=== PATIENT | male | born 1940 | race Caucasian/White ===

== ENCOUNTER 2018-10-28 12:08 | Inpatient (IN) | payer MEDICARE, SELFPAY ==
[2018-10-28] VITALS (14 sets, daily range): BP systolic 112–148; BP diastolic 45–79; PULSE 80–118; RESP 12–28; TEMP 36.8–38.2; O2SAT 94–99; BMI 22.6; BMI 22.7; BMI 24.7
[2018-10-28 12:40] LABS: Bedside Glucose 141 mg/dL (70-110)
--- NOTE | 2018-10-28 12:40 | RAD_ITS ---
STUDY: X-RAY CHEST REASON FOR EXAM: Male, 78 years old. Weakness. Fever. TECHNIQUE: Single AP portable view of the chest. COMPARISON: None. FINDINGS: EKG electrodes are seen. There is elevation of the right hemidiaphragm. Scattered calcified granulomas. No acute abnormality is seen. There is no demonstrated pleural abnormality. Normal size heart. Normal mediastinum and dayanara. Normal visualized pulmonary arteries. There is atherosclerotic tortuosity of the aortic arch and descending thoracic aorta. There are degenerative changes of the visualized thoracic spine. Normal visualized ribs, clavicles, and shoulders. There is no demonstrated abnormality of the visualized soft tissue structures of the upper abdomen. RAD/Chest 1 View (Portable) IMPRESSION: No acute abnormality is seen. Electronically Signed: Vinicius Claytno MD at 13:07 EST Tel [phone], Service support ,
--- NOTE | 2018-10-28 12:40 | EKG12_ITS ---
Test Reason : TACHY Blood Pressure : / mmHG Vent. Rate : 116 BPM Atrial Rate : 116 BPM P-R Int : 130 ms QRS Dur : 074 ms QT Int : 316 ms P-R-T Axes : 051 027 056 degrees QTc Int : 439 ms Sinus tachycardia Otherwise normal ECG Confirmed by SUMAN CARRINGTON, ROLANDO ([id number]), food editor MARIA L SCHULER ([id number]) on 11/01/2018 9:21:45 AM Referred By: SARAI/DIEGO Confirmed By:ROLANDO WILL MD
[2018-10-28] MEDS: 0.9% Normal Saline 1,000 ML 1000 ML IV (13:27)
[2018-10-28] MEDS: Ceftriaxone 1 GM/50 ML BAG IV (13:27)
[2018-10-28 13:45] LABS: Absolute Neutrophil Count 10.3 X10^3/uL (2.0-7.7); Basophil# 0.03 X10^3/uL; Basophil% 0.3 % (0-1); Eosinophil# 0.01 X10^3/uL; Eosinophils% 0.1 % (0-5); Hematocrit 34.1 % (40-54); Hemoglobin 10.7 g/dl (13.0-16.5); Lymphocyte % 4.3 % (19-41); Mean Corp Hgb Conc 31.4 g/gl (32-36); Mean Corpuscular Hgb 28.5 pg (27.0-32.0); Mean Corpuscular Volume 90.7 fL (80-94); Mean Platelet Vol. 10.7 fl (6.2-12.0); Monocyte# 0.64 X10^3/uL; Monocyte% 5.6 % (0-10); Neutrophil % 89.3 % (47-70); Platelet Count 309 K/mm3 (150-450); RBC Distribution Width CV 15.4 % (11.6-14.6); RBC Distribution Width SD 51.1 fl (35.1-43.9); Red Blood Count 3.76 M/mm3 (4.6-6.2); White Blood Count 11.5 K/mm3 (4.4-11.0)
[2018-10-28 13:46] LABS: POSITIVE COUNT NO; POSITIVE DIFFERENTIAL YES; POSITIVE MORPHOLOGY NO
[2018-10-28 13:47] LABS: Differential Indicated SCAN CRITERIA MET
[2018-10-28 13:54] LABS: ALB/GLOB Ratio 0.4 RATIO (0.9-2.4); AST(SGOT) 67 U/L (15-37); Alanine Aminotransfer ALT/SGPT 72 U/L (16-61); Albumin, Serum 2.3 g/dL (3.2-5.0); Alkaline Phosphatase 90 U/L (45-117); Anion Gap 8 (5-15); BUN 29 mg/dL (7-18); Calcium,Total 9.1 mg/dL (8.5-10.1); Chloride 106 mmol/L (98-107); Creatinine, Serum 1.21 mg/dL (0.70-1.30); EST Glomerular Filtration Rate 62 mL/min (>60); Est Glom Filt Rate - Afr Amer 75 mL/min (>60); Estimated Creatinine Clearance 49.58 ml/min; Globulin 5.2 g/dL (2.2-4.2); Glucose 155 mg/dL (74-106); Potassium 3.8 mmol/L (3.5-5.1); Protein, Total 7.5 g/dL (6.4-8.2); Sodium Level 142 mmol/L (136-145)
--- NOTE | 2018-10-28 13:58 | ED.RN ---
LAB CALLED WITH [facility]ACT[facility] OF 2.2, DR. CORTEZ INFORMED AND PRIMARY NURSE MALAIKA LE RN.
[2018-10-28 13:59] LABS: Lactic Acid 2.2 mmol/L (0.4-2.0)
[2018-10-28 14:06] LABS: Mucous, Urine 0 SEEN /hpf (<or=2+); Squamous Epithelial Cells - UA 0 SEEN /hpf (0-5)
[2018-10-28 14:09] LABS: Color, Urine Yellow (Yellow); Glucose, Dipstick Normal (Normal); Ketone-Dipstick Negative (Negative); Leukocyte Esterase-Dipstick 500 /ul (Negative); Nitrite-Dipstick Negative (Negative); Occult Blood-Urine 250 /ul (Negative); Protein-Dipstick 100 mg/dl (Negative); Specific Gravity, Urine 1.015 (1.002-1.030); Urine Bilirubin Dipstick Negative (Negative); Urine Clarity Cloudy (Clear); Urine Urobilinogen 4 mg/dl (Normal)
[2018-10-28 14:17] LABS: Bacteria 3+ /hpf (None Seen); Red Blood Cells-Urine 50-100 SEEN /hpf (0-5); White Blood Cells 50-100 SEEN /hpf (0-5)
--- NOTE | 2018-10-28 14:27 | ED.VISSUMM ---
- ER Visit Summary Date of Service: 10/28/18 Chief Complaint: [Fever, confusion] History of Present Illness: The patient is a 78 M [presents to the emergency department with fever that started today. At long-term patient with temperature up to 104. Patient had decreased responsiveness per long-term staff as well as his who is now with him here. Patient does have an indwelling Santos catheter. Patient has a history of dementia and typically does not give much history. Patient with history of chronic decubitus ulcer.] Physical Examination: [HEENT-PERRLA, EOMI. Cranial nerves II through XII grossly intact. TMs clear. Mucous membranes moist. No adenopathy. Cardiovascular-regular rate and rhythm without murmur or ectopy Lungs-clear to auscultation, chest wall stable without crepitus or subcu emphysema Abdomen-normoactive bowel sounds, soft, nontender, no rebound or rigidity, no peritoneal signs. Sacrum-patient has a large sacral decubitus ulcer and on evaluation patient had had a bowel movement and there is stool around the decubitus ulcer and when the dressing was taken down it was noted that the ulcer is packed but also has stool within it. There is surrounding erythema. There is warmth. Extremities-intact ?4, normal range of motion, normal pulses, atraumatic] Test Results: [EKG obtained showed a sinus rhythm with a ventricular rate of 116 bpm. CBC with differential showed a white count of 11.5, hemoglobin 10.7, hematocrit 34, placed 309. Chemistries unremarkable. BUN was 29 and creatinine 1.21. Lactate was elevated 2.2. LFTs slightly elevated. Troponin is less than 0.015. Urinalysis showed 50-100 WBCs and 50-100 RBCs. Patient had +3 bacteria.] Emergency Department Course and Treatment: [Urine culture sent. Blood culture sent. Patient was started empirically on presentation on Rocephin 1 g IV. Patient was given Tylenol 1 g rectally.] A liter normal same fluid bolus was ordered. Treatment Plan: [Admit] Disposition: [Admit] Impression: [Sepsis UTI Sacral decubitus chronic-infected] This note was generated with Bilibotation software. It may contain incorrect words, spelling, and punctuation that were not noted in review of the chart prior to signing ED Disposition - Plan for ED Patient: Chief Complaint: General Illness Referrals: Edy Che MD [Primary Care Provider] -
--- NOTE | 2018-10-28 14:30 | ED.DCSUM_ITS ---
- ER Visit Summary Date of Service: 10/28/18 Chief Complaint: [Fever, confusion] History of Present Illness: The patient is a 78 M [presents to the emergency department with fever that started today. At [facility] patient with temperature up to 104. Patient had decreased responsiveness per [facility] staff as well as his who is now with him here. Patient does have an indwelling Santos catheter. Patient has a history of dementia and typically does not give much history. Patient with history of chronic decubitus ulcer.] Physical Examination: [HEENT-PERRLA, EOMI. Cranial nerves II through XII grossly intact. TMs clear. Mucous membranes moist. No adenopathy. Cardiovascular-regular rate and rhythm without murmur or ectopy Lungs-clear to auscultation, chest wall stable without crepitus or subcu emphysema Abdomen-normoactive bowel sounds, soft, nontender, no rebound or rigidity, no peritoneal signs. Sacrum-patient has a large sacral decubitus ulcer and on evaluation patient had had a bowel movement and there is stool around the decubitus ulcer and when the dressing was taken down it was noted that the ulcer is packed but also has stool within it. There is surrounding erythema. There is warmth. Extremities-intact ?4, normal range of motion, normal pulses, atraumatic] Test Results: [EKG obtained showed a sinus rhythm with a ventricular rate of 116 bpm. CBC with differential showed a white count of 11.5, hemoglobin 10.7, caren tocrit 34, placed 309. Chemistries unremarkable. BUN was 29 and creatinine 1.21. Lactate was elevated 2.2. LFTs slightly elevated. Troponin is less than 0.015. Urinalysis showed 50-100 WBCs and 50-100 RBCs. Patient had +3 bacteria.] Emergency Department Course and Treatment: [Urine culture sent. Blood culture sent. Patient was started empirically on presentation on Rocephin 1 g IV. Patient was given Tylenol 1 g rectally.] A liter normal same fluid bolus was ordered. Treatment Plan: [Admit] Disposition: [Admit] Impression: [Sepsis UTI Sacral decubitus chronic-infected] This note was generated with [employer]Shift [employer]ation software. It may contain incorrect words, spelling, and punctuation that were not noted in review of the chart prior to signing ED Disposition - Plan for ED Patient: Chief Complaint: General Illness Referrals: Edy Che MD [Primary Care Provider] -
[2018-10-28] MEDS: Vancomycin IV 1,000 MG/200 ML BAG 200 MG IV (15:14)
--- NOTE | 2018-10-28 15:19 | CM.ED ---
Social Work Note Jenaro from [facility] approached SW regarding discharge planning. Reports that pt is from SNF and family is wanting for him to return to ECF with hospice. Will update SW on assigned unit. Pt is from [facility]. Placed call to FE Gardner, and updated. PLAN: ECF with [facility]. HAILEY Oh, ALEX
--- NOTE | 2018-10-28 15:56 | PCM.HP.STD ---
Problem List (1) Sepsis Status: Acute (2) Pyelonephritis Status: Acute (3) Osteoarthritis Status: Chronic (4) Dementia with behavioral disturbance Status: Chronic (5) HTN (hypertension) Status: Chronic (6) Type 2 diabetes mellitus Status: Chronic (7) Urine retention Status: Suspected (8) Chronic renal failure Status: Suspected (9) Normochromic normocytic anemia Status: Acute (10) Dysphagia Status: Chronic (11) Sacral decubitus ulcer Status: Chronic History of Present Illness Date of Admission: 10/28/18 Chief Complaint: change in mental status, generalized weakness The patient is a 78 year old M with a PMH of dementia with behavioral disturbances, diabetes mellitus type 2, hypertension, hypothyroidism, osteoarthritis, chronic non-healing sacral decubitus ulcer and 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 He is not able to converse with me at the time of my exam and hx was obtained from his . He is currently receiving palliative care at the [facility] and his has been considering hospice but, she has not been able to make that decision yet and she wants him treated for infection but he will be DNRCCA. Vital signs of presentation to the emergency room were temp 98.4, pulse rate 118, blood pressure 118/69, respiratory rate 21 and he was 94% saturated on room air. White blood cell count is elevated at 11.5 with left shift. His hemoglobin is 10.7 with normochromic normocytic indices. Platelets are within normal limits. Electrolytes are within normal limits. BUN is 29 with a creatinine of 1.21 and an estimated creatinine clearance of 49.58. We have no baseline labs on this gentleman. Random blood sugar was 155 and hemoglobin A1c was elevated at 8.9. The initial lactic acid was 2.2 but the second check following hydration was 1.0. Transaminases are mildly elevated with an AST of 67 and an ALT of 72. Alk phos and bili are within normal limits. The troponin was less than 0.015. The urine showed 50-100 WBCs per high-power field with 3+ bacteria. Blood cultures x2 and a urine culture were sent from the emergency department. The chest x-ray showed no infiltrates, pulmonary vascular congestion or pleural effusions. He is being admitted to the hospital with complicated UTI/pyelonephritis and severe sepsis with altered mental status. Past Medical History Past Medical History (Chronic Problems): Chronic Problems Osteoarthritis (Chronic) Dementia with behavioral disturbance (Chronic) HTN (hypertension) (Chronic) Type 2 diabetes mellitus (Chronic) Dysphagia (Chronic) Sacral decubitus ulcer (Chronic) Allergies ciprofloxacin [From Cipro] Allergy (Verified 10/28/18 12:10) Unknown Penicillins [PCN] Allergy (Verified 10/28/18 12:10) Unknown Home Medications: Ambulatory Orders Medication Instructions Recorded Acetaminophen 650 mg PO 4X/DAY PRN 10/28/18 Acetaminophen 650 mg RC Q4H PRN 10/28/18 Amlodipine [Norvasc] 5 mg PO DAILY 10/28/18 Ascorbic Acid [Vitamin C] 500 mg PO DAILY@0800 10/28/18 Aspirin E.C. [Ecotrin] 81 mg PO DAILY@0800 10/28/18 Atorvastatin Calcium [Lipitor] 10 mg PO QHS 10/28/18 Bisacodyl 10 mg RC PRN PRN 10/28/18 Collagenase [Santyl] 1 applic TOPICAL DAILY 10/28/18 Cyanocobalamin [Vitamin B12] 500 mcg PO DAILY@0800 10/28/18 Divalproex Sprinkles [Depakote 500 mg NG QHS 10/28/18 Sprinkles] Docusate Sodium 100 mg PO BID 10/28/18 Donepezil HCl [Aricept] 10 mg PO QHS 10/28/18 Doxycycline Monohydrate 100 mg PO Q12H 10/28/18 Guaifenesin [Robitussin] 10 ml PO Q4H PRN PRN 10/28/18 Insulin Glargine,Hum.rec.anlog 30 unit SC QHS 10/28/18 [Lantus] Insulin Lispro [Humalog] 10 unit SC BREAKFAST 10/28/18 Levothyroxine [Synthroid] 100 mcg PO DAILY 10/28/18 Mag Hydrox/Al Hydrox/Simeth 30 ml PO Q4H PRN PRN 10/28/18 [Mylanta II] Magnesium Hydroxide [Milk Of 30 ml PO DAILY PRN PRN 10/28/18 Magnesia] Multivit,Stress Formula/Zinc 1 each PO BID 10/28/18 [Stress Formula with Zinc Tab] Multivit,Tx with Iron,Minerals 1 tab PO DAILY 10/28/18 [Thera-M] Polyethylene Glycol 3350 [Miralax] 17 gm PO DAILY 10/28/18 Prostat Awc 30 ml PO BID 10/28/18 Risperidone [Risperdal] 1 mg PO DAILY 10/28/18 Sennosides [Senna Lax] 8.6 mg PO BID 10/28/18 traMADol [Ultram (G)] 50 mg PO DAILY PRN 10/28/18 traZODone [Desyrel] 50 mg PO QHS 10/28/18 Surgical History: no surgical history Psychiatric History: No pertinent psych hx Lives: [facility] Smoking Status: Former smoker - he used to smoke a pipe when he was younger Tobacco Use: Non-smoker, Pipe Alcohol: None Drugs: None - *Family History Maternal History Items: No pertinent history Paternal History Items: No pertinent history Review of Systems Neurological: Reports: - - increased confusion and not as responsive as usual. Unable to obtain accurate/complete ROS d/t: pt is non-verbal at the present time VTE Information - Inpt Only VTE Present on Admission: No VTE Mechan Device Prophylaxis: SCD's, Knee High BENY Hose VTE Pharm Prophylaxis ordered?: Yes Patient Problems: Active and Suspected Problems Sepsis (Acute) Pyelonephritis (Acute) Urine retention (Suspected) Chronic renal failure (Suspected) Normochromic normocytic anemia (Acute) - Physical Exam General: Lethargic, Non-Cooperative, - - Nonverbal, will open his eyes occasionally but not on command HEENT: Atraumatic, PERRLA, Normocephalic Oral: Dry Mucosa Neck: Supple, No JVD, No Nodes, Trachea Midline Lungs: Clear to auscultation, No rhonchi, No wheeze, No rales, Diminished Cardiovascular: Regular Rhythm, Normal S1, Normal S2, No rub noted, No Gallop, Tachycardic Abdomen: Bowel Sounds Present, Soft, Non-Distended, - - No guarding with palpation and no masses Extremities: No clubbing, No cyanosis, No edema, Peripheral Pulses Normal Skin: No rashes, - - He has a sacral decubitus ulcer....will examine when he has been cleaned up and the wound can be properly evaluated......there is stool in the wound Musculoskeletal: Muscle Wasting Neurological: - - can not evaluate......no facial asymmetry. He is not moving and will not follow commands Vital Signs Temp Pulse Resp BP Pulse Ox 99.2 F H 110 H 19 H 112/67 94 10/28/18 15:48 10/28/18 15:48 10/28/18 15:48 10/28/18 15:48 10/28/18 15:48 Oxygen Flow Rate (L/min) 2 Oxygen Delivery Method Room Air Weight: 153 lb 3.54 oz Body Mass Index (BMI) 24.7 Finger Stick Blood Glucose 141 Laboratory Tests Past 24 Hrs 10/28/18 10/28/18 10/28/18 12:20 12:20 12:20 WBC 11.5 H RBC 3.76 L Hgb 10.7 L Hct 34.1 L MCV 90.7 MCH 28.5 MCHC 31.4 L RDW 15.4 H RDW Differential 51.1 H Plt Count 309 MPV 10.7 Immature Gran % (Auto) 0.400 Neut % (Auto) 89.3 H Lymph % (Auto) 4.[address] [place] % (Auto) 5.6 Eos % (Auto) 0.1 Baso % (Auto) 0.3 Absolute Neuts (auto) 10.3 H Absolute Lymphs (auto) 0.50 L Total Counted Not Reportable Differential Comment COMMENT Sodium 142 Potassium 3.8 Chloride 106 Carbon Dioxide 28.0 Anion Gap 8 BUN 29 H Creatinine 1.21 Estim Creat Clear Calc 49.58 Est GFR (MDRD) Af Amer 75 Est GFR (MDRD) Non-Af 62 BUN/Creatinine Ratio 24.0 H Glucose 155 H Lactic Acid 2.2 H Calcium 9.1 Total Bilirubin 0.50 AST 67 H ALT 72 H Alkaline Phosphatase 90 Troponin I < 0.015 Total Protein 7.5 Albumin 2.3 L Globulin 5.2 H Albumin/Globulin Ratio 0.4 L Urine Color Urine Clarity Urine pH Ur Specific [place] Urine Protein Urine Glucose (UA) Urine Ketones Urine Occult Blood Urine Nitrite Urine Bilirubin Urine Urobilinogen Ur Leukocyte Esterase Urine RBC Urine WBC Ur Squamous Epith Cells Urine Bacteria Urine Mucus 10/28/18 14:00 WBC RBC Hgb Hct MCV MCH MCHC RDW RDW Differential Plt Count MPV Immature Gran % (Auto) Neut % (Auto) Lymph % (Auto) [place] % (Auto) Eos % (Auto) Baso % (Auto) Absolute Neuts (auto) Absolute Lymphs (auto) Total Counted Differential Comment Sodium Potassium Chloride Carbon Dioxide Anion Gap BUN Creatinine Estim Creat Clear Calc Est GFR (MDRD) Af Amer Est GFR (MDRD) Non-Af BUN/Creatinine Ratio Glucose Lactic Acid Calcium Total Bilirubin AST ALT Alkaline Phosphatase Troponin I Total Protein Albumin Globulin Albumin/Globulin Ratio Urine Color Yellow Urine Clarity Cloudy Urine pH 5.0 Ur Specific [place] 1.015 Urine Protein 100 H Urine Glucose (UA) Normal Urine Ketones Negative Urine Occult Blood 250 H Urine Nitrite Negative Urine Bilirubin Negative Urine Urobilinogen 4 H Ur Leukocyte Esterase 500 H Urine RBC 50-100 SEEN Urine WBC 50-100 SEEN Ur Squamous Epith Cells 0 SEEN Urine Bacteria 3+ Urine Mucus 0 SEEN POC Glucose 10/28/18 12:32 POC Glucose 141 H Assessment/Plan All Active Problems Sepsis (Acute) Pyelonephritis (Acute) Normochromic normocytic anemia (Acute) Impressions 1. severe sepsis due to complicated UTI/Pyelonephritis in a pt with a chronic indwelling zuñiga. 2. delirium on chronic dementia with behavioral disturbances 3. Hypothyroidism 4. Hypertension 5. Diabetes mellitus type 2 6. Osteoarthritis 7. Suspected chronic renal failure-we have no baseline 8. Dry mucous membranes with elevated BUN/creatinine ratio-suspect dehydration 9. Lactic acidosis Urine and blood cultures X 2 Change the zuñiga catheter Hydrate Bladder scan for urine residual Recheck the lab in the AM Start cefepime which should cover urinary tract infection and infection in the sacral decubitus ulcer with stool present Hold all oral medications until he is seen by ST Check TSH and a T4 Haldol IV for agitation Wound care consult - wet to dry dressing for now culture the sacral wound PT and OT evaluations when appropriate CODE STATUS: Discussed code status at length with Mrs. Fountain including the difference between FULL CODE, DNR CCA and DNR CC status. All questions were answered. An order for DNR CC arrest was entered into the computer. A total of 20 minutes face to face time was devoted to advanced care planning. Code Visit Inpatient E&M: 08931 Init Hosp L3
[2018-10-28 16:34] LABS: Hemoglobin A1c 8.9 % (4.2-6.3)
[2018-10-28] MEDS: 0.9% Normal Saline 1,000 ML 100 ML IV (16:50)
[2018-10-28 17:37] LABS: Reflex Lactate? Y
[2018-10-28 20:56] LABS: Bedside Glucose 140 mg/dL (70-110)
[2018-10-28 20:57] LABS: T4 Free Direct 1.08 ng/dL (0.76-1.46); Thyroid Stim Hormone (TSH) 6.18 uIU/mL (0.358-3.74)
[2018-10-28] MEDS: Acetaminophen 650 MG Suppository RECTAL (21:30)
[2018-10-29] VITALS (11 sets, daily range): BP systolic 109–134; BP diastolic 55–73; PULSE 65–86; RESP 16–18; TEMP 36.7–37.7; O2SAT 93–95
[2018-10-29] MEDS: Insulin Lispro 100 UNIT/ML INSULN.PEN SQ ×5 (00:03→21:43)
[2018-10-29 00:05] LABS: Bedside Glucose 182 mg/dL (70-110)
[2018-10-29] MEDS: Acetaminophen 650 MG Suppository RECTAL ×3 (02:41→13:46)
[2018-10-29] MEDS: 0.9% Normal Saline 1,000 ML 100 ML IV ×3 (02:58→23:45)
[2018-10-29] MEDS: Enoxaparin 40 MG/0.4 ML Syringe SC (06:18)
[2018-10-29 06:26] LABS: Bedside Glucose 169 mg/dL (70-110)
[2018-10-29] MEDS: Collagenase 30gm Tube 1 APPLIC TOPICAL (11:06)
--- NOTE | 2018-10-29 11:19 | PCM.PN.HOSP ---
Patient Problems: Active and Suspected Problems Sepsis (Acute) Pyelonephritis (Acute) Urine retention (Suspected) Chronic renal failure (Suspected) Normochromic normocytic anemia (Acute) Subjective: Patient is a 78-year-old with multiple comorbidities including dementia resident at an extended care facility with that with a chronic indwelling Santos catheter brought to the emergency department on account of decreased level of sensorium associated with fever. An assessment of severe sepsis secondary to UTI was made on admission to monitored bed for further management Objective: GENERAL: Not to be in any distress HEENT: Atraumatic; moist oral mucosa EYES; Anicteric, Normal Conjunctiva NECK; supple, normal thyroid, RESPIRATORY: Diminished to auscultation bilaterally, CARDIOVASCULAR: Regular S1 S2, GI: soft, non-tender, normoactive bowel sounds, : No Renal angle tenderness; EXTREMITIES: No edema, no clubbing, no cyanosis. MUSCULOSKELETAL: No Joint Tenderness; NEURO: Awake; no lateralizing signs. SKIN: No Rash PSYCH; flat affect Vitals/I&O's: Vital Signs Temp Pulse Resp BP Pulse Ox 98.0 F 70 18 109/60 93 10/29/18 09:35 10/29/18 09:35 10/29/18 09:35 10/29/18 09:35 10/29/18 09:35 Oxygen Flow Rate (L/min) 2 Oxygen Delivery Method Room Air Weight: 69.5 kg Body Mass Index (BMI) 24.7 Finger Stick Blood Glucose 141 Intake and Output for Last 24 Hours 10/27/18 10/28/18 10/29/18 23:59 23:59 23:59 Intake Total 1084.7 / 1084.7 600 / 600 Output Total 475 / 475 300 / 300 Balance 609.7 / 609.7 300 / 300 Microbiology Past 72 Hours 10/28/18 14:00 Urine Catheter - Santos Urine Culture - Preliminary GNR Poss Pseudomonas sp 10/28/18 16:49 Wound - Buttock Gram Stain - Final 10/28/18 12:20 Blood Culture (Wb) - Anticubital Left Blood Culture - Preliminary 10/28/18 12:30 Blood Culture (Wb) - Left Hand Blood Culture - Preliminary Laboratory Results 10/28/18 12:20: WBC 11.5 H, RBC 3.76 L, Hgb 10.7 L, Hct 34.1 L, MCV 90.7, MCH 28.5, MCHC 31.4 L, RDW 15.4 H, RDW Differential 51.1 H, Plt Count 309, MPV 10.7, Immature Gran % (Auto) 0.400, Neut % (Auto) 89.3 H, Lymph % (Auto) 4.3 L, [place] % (Auto) 5.6, Eos % (Auto) 0.1, Baso % (Auto) 0.3, Absolute Neuts (auto) 10.3 H, Absolute Lymphs (auto) 0.50 L, Total Counted Not Reportable, Differential Comment COMMENT 10/28/18 12:20: Sodium 142, Potassium 3.8, Chloride 106, Carbon Dioxide 28.0, Anion Gap 8, BUN 29 H, Creatinine 1.21, Estim Creat Clear Calc 49.58, Est GFR (MDRD) Af Amer 75, Est GFR (MDRD) Non-Af 62, BUN/Creatinine Ratio 24.0 H, Glucose 155 H, Calcium 9.1, Total Bilirubin 0.50, AST 67 H, ALT 72 H, Alkaline Phosphatase 90, Troponin I < 0.015, Total Protein 7.5, Albumin 2.3 L, Globulin 5.2 H, Albumin/Globulin Ratio 0.4 L 10/28/18 12:20: Lactic Acid 2.2 H 10/28/18 12:20: Hemoglobin A1c 8.9 H 10/28/18 12:20: TSH 6.18 H, Free T4 1.08 10/28/18 12:32: POC Glucose 141 H 10/28/18 14:00: Urine Color Yellow, Urine Clarity Cloudy, Urine pH 5.0, Ur Specific [place] 1.015, Urine Protein 100 H, Urine Glucose (UA) Normal, Urine Ketones Negative, Urine Occult Blood 250 H, Urine Nitrite Negative, Urine Bilirubin Negative, Urine Urobilinogen 4 H, Ur Leukocyte Esterase 500 H, Urine RBC 50-100 SEEN, Urine WBC 50-100 SEEN, Ur Squamous Epith Cells 0 SEEN, Urine Bacteria 3+, Urine Mucus 0 SEEN 10/28/18 17:03: POC Glucose 140 H 10/28/18 18:00: Lactic Acid 1.0 10/28/18 23:58: POC Glucose 182 H 10/29/18 06:15: POC Glucose 169 H Current Medications Acetaminophen (Tylenol) 650 mg RECTAL Q6H [facility] Stop: 10/30/18 14:31 Last Admin: 10/29/18 07:55 Dose: 650 mg Bisacodyl (Dulcolax) 10 mg RECTAL PRN PRN PRN Reason: Constipation Collagenase (Santyl) 1 applic TOPICAL DAILY [facility]; Protocol Last Admin: 10/29/18 11:06 Dose: 1 applicatio Enoxaparin Sodium (Lovenox) 40 mg SC DAILY@0600 [facility] Last Admin: 10/29/18 06:18 Dose: 40 mg Haloperidol Lactate (Haldol) 1 - 2 mg IV Q4H PRN PRN PRN Reason: AGITATION Sodium Chloride () 1,000 mls @ 100 mls/hr IV .Q10H [facility] Last Admin: 10/29/18 02:58 Dose: 100 mls/hr Cefepime HCl 1 gm/ Sodium (Chloride) 50 mls @ 100 mls/hr IV Q8 [facility] Last Admin: 10/29/18 06:16 Dose: 100 mls/hr Insulin Human Lispro (Humalog Kwikpen (Bkc)) 0 unit SQ Q6 [facility]; Protocol Last Admin: 10/29/18 06:17 Dose: 1 units Levothyroxine Sodium (Synthroid) 100 mcg PO DAILY@0600 [facility] Last Admin: 10/29/18 05:01 Dose: Not Given Morphine Sulfate () 1 - 2 mg IV Q4H PRN PRN PRN Reason: Moderate Pain (pain scale 4-5) Ondansetron HCl (Zofran) 4 mg IV Q8H PRN PRN PRN Reason: Nausea Sodium Chloride () 5 - 15 ml IV UD PRN PRN Reason: SALINE FLUSH Medical Necessity - Tobacco Use Smoking Status: Former smoker - he used to smoke a pipe when he was younger Tobacco Use: Non-smoker, Pipe Assessment/Plan All Active Problems Sepsis (Acute) Pyelonephritis (Acute) Normochromic normocytic anemia (Acute) Patient is a 78-year-old with multiple comorbidities including dementia resident at an extended care facility with that with a chronic indwelling Santos catheter brought to the emergency department on account of decreased level of sensorium associated with fever. An assessment of severe sepsis secondary to UTI was made on admission to monitored bed for further management 1. Severe sepsis secondary to complicated UTI due to the presence of an indwelling Santos catheter. Patient was initially admitted to a monitored bed managed per protocol with broad-spectrum antibiotic therapy, IV fluid resuscitation after cultures have been sent. 2. Alzheimer's dementia with occasional behavioral disturbances patient is currently on Haldol as needed 3. Hypertension-blood pressure controlled, home medications continued with dose adjustment as needed 4. Hypothyroidism-patient is on levothyroxine home dose continued 5. Chronic nonhealing sacral decubitus ulcer 6. BPH with bladder outlet obstruction status post chronic indwelling Santos catheter 7. Generalized osteoarthritis 8. Diabetes mellitus type II; placed on 1800 ADA diet in addition to sliding scale coverage 9. DVT prophylaxis SC Lovenox CODE STATUS DNR [facility] Active Medications Acetaminophen (Tylenol) 650 mg RECTAL Q6H [facility] Stop: 10/30/18 14:31 Last Admin: 10/29/18 07:55 Dose: 650 mg Bisacodyl (Dulcolax) 10 mg RECTAL PRN PRN PRN Reason: Constipation Collagenase (Santyl) 1 applic TOPICAL DAILY [facility]; Protocol Last Admin: 10/29/18 11:06 Dose: 1 applicatio Enoxaparin Sodium (Lovenox) 40 mg SC DAILY@0600 [facility] Last Admin: 10/29/18 06:18 Dose: 40 mg Haloperidol Lactate (Haldol) 1 - 2 mg IV Q4H PRN PRN PRN Reason: AGITATION Sodium Chloride () 1,000 mls @ 100 mls/hr IV .Q10H [facility] Last Admin: 10/29/18 12:02 Dose: 100 mls/hr Cefepime HCl 1 gm/ Sodium (Chloride) 50 mls @ 100 mls/hr IV Q8 [facility] Last Admin: 10/29/18 06:16 Dose: 100 mls/hr Insulin Human Lispro (Humalog Kwikpen (Bkc)) 0 unit SQ Q6 [facility]; Protocol Last Admin: 10/29/18 11:59 Dose: 1 units Levothyroxine Sodium (Synthroid) 100 mcg PO DAILY@0600 [facility] Last Admin: 10/29/18 05:01 Dose: Not Given Morphine Sulfate () 1 - 2 mg IV Q4H PRN PRN PRN Reason: Moderate Pain (pain scale 4-5) Ondansetron HCl (Zofran) 4 mg IV Q8H PRN PRN PRN Reason: Nausea Sodium Chloride () 5 - 15 ml IV UD PRN PRN Reason: SALINE FLUSH Clinical Impression(s) from Imaging Studies Chest X-Ray 10/28/18 12:40 IMPRESSION: No acute abnormality is seen. Electronically Signed: Vinicius Clayton MD at 13:07 EST Tel [phone], Service support , Code Visit Inpatient E&M: 32499 Subs Hosp L3
[2018-10-29 11:46] LABS: Bedside Glucose 179 mg/dL (70-110)
--- NOTE | 2018-10-29 13:39 | CASEMGMT ---
TK received a call from Shelia at [facility]. She said they have to work out a one time contract with [facility] before patient can return on Hospice. She also asked if family is aware they will have to private pay. TK told her SW will have to ask Jenaro from [place]. She said they would want a month up front which would be $7,050. TK spoke with Jenaro while he was here at [facility]. He briefly spoke with family about private pay. He said he thinks they were working on a Medicaid application with an civil litigation attorney. He said he does not think patient will be able to go over the weekend as they will likely not be able to get the contract worked out. TK called Shelia and left her a message letting her know what Jenaro said. Charito JOHNSON MSW
--- NOTE | 2018-10-29 14:05 | NURSING ---
wound photo: sacrum
--- NOTE | 2018-10-29 15:50 | CASEMGMT ---
TK spoke with Shelia. She said patient's is prepared to pay up front. However, the contract is still not in place. Therefore, he cannot return to [facility] on Hospice. Shelia will let TK know if this changes. Plan: d/c back to [facility] under [facility] when contract is in place. Charito HART
--- NOTE | 2018-10-29 16:43 | CASEMGMT ---
Contract was worked out between [facility] and [facility]. Green sheet on chart if patient is ready over the weekend. Plan: d/c back to [facility] under [facility]. Charito JOHNSON MSW
[2018-10-29 17:25] LABS: Bedside Glucose 169 mg/dL (70-110)
[2018-10-29] MEDS: Acetaminophen 325 MG Tablet 650 MG PO (20:51)
[2018-10-29 21:01] LABS: Bedside Glucose 284 mg/dL (70-110)
[2018-10-30 03:20] VITALS: BP 124/62; PULSE 75; RESP 16; TEMP 37.6; O2SAT 93
[2018-10-30] MEDS: Acetaminophen 325 MG Tablet 650 MG PO ×3 (03:27→13:50)
[2018-10-30] MEDS: Enoxaparin 40 MG/0.4 ML Syringe SC (05:26)
[2018-10-30] MEDS: Levothyroxine 100 MCG Tablet PO (05:26)
[2018-10-30 06:55] LABS: Bedside Glucose 259 mg/dL (70-110)
[2018-10-30] MEDS: Collagenase 30gm Tube 1 APPLIC TOPICAL (08:00)
[2018-10-30 09:45] VITALS: BP 113/61; PULSE 72; RESP 18; TEMP 36.8; O2SAT 95
[2018-10-30] MEDS: Insulin Lispro 100 UNIT/ML INSULN.PEN SQ ×4 (09:49→21:37)
[2018-10-30] MEDS: 0.9% Normal Saline 1,000 ML 100 ML IV ×2 (09:54→21:37)
[2018-10-30 11:55] LABS: Bedside Glucose 324 mg/dL (70-110)
--- NOTE | 2018-10-30 12:23 | PCM.PN.HOSP ---
Patient Problems: Active and Suspected Problems Sepsis (Acute) Pyelonephritis (Acute) Urine retention (Suspected) Chronic renal failure (Suspected) Normochromic normocytic anemia (Acute) Subjective: Patient much more awake compared to the day prior. Objective: GENERAL: Not in any distress HEENT: Atraumatic; moist oral mucosa EYES; Anicteric, Normal Conjunctiva NECK; supple, normal thyroid, RESPIRATORY: Diminished to auscultation bilaterally, CARDIOVASCULAR: Regular S1 S2, GI: soft, non-tender, normoactive bowel sounds, : No Renal angle tenderness; EXTREMITIES: No edema, no clubbing, no cyanosis. MUSCULOSKELETAL: No Joint Tenderness; NEURO: Awake; no lateralizing signs. SKIN: No Rash PSYCH; flat affect Vitals/I&O's: Vital Signs Temp Pulse Resp BP Pulse Ox 98.3 F 72 18 113/61 95 10/30/18 09:45 10/30/18 09:45 10/30/18 09:45 10/30/18 09:45 10/30/18 09:45 Oxygen Flow Rate (L/min) 2 Oxygen Delivery Method Room Air Weight: 69.5 kg Body Mass Index (BMI) 24.7 Finger Stick Blood Glucose 141 Intake and Output for Last 24 Hours 10/28/18 10/29/18 10/30/18 23:59 23:59 23:59 Intake Total 1084.7 / 1084.7 1802 / 1802 1662.9 / 1662.9 Output Total 475 / 475 995 / 995 675 / 675 Balance 609.7 / 609.7 807 / 807 987.9 / 987.9 Microbiology Past 72 Hours 10/28/18 12:20 Blood Culture (Wb) - Anticubital Left Blood Culture - Preliminary GNR non police officer crime prevention 10/28/18 12:30 Blood Culture (Wb) - Left Hand Blood Culture - Preliminary GNR non police officer crime prevention 10/28/18 16:49 Wound - Buttock Gram Stain - Final 10/28/18 16:49 Wound - Buttock Wound Culture - Preliminary Gram negative shania GNR lactose police officer crime prevention GPC Poss Enterococcus sp 10/28/18 14:00 Urine Catheter - Santos Urine Culture - Final Pseudomonas aeroginosa Laboratory Results 10/29/18 17:12: POC Glucose 169 H 10/29/18 20:49: POC Glucose 284 H 10/30/18 06:44: POC Glucose 259 H 10/30/18 11:38: POC Glucose 324 H Current Medications Acetaminophen (Tylenol) 650 mg PO Q6H [facility] Stop: 10/30/18 14:31 Last Admin: 10/30/18 09:50 Dose: 650 mg Bisacodyl (Dulcolax) 10 mg RECTAL PRN PRN PRN Reason: Constipation Collagenase (Santyl) 1 applic TOPICAL DAILY [facility]; Protocol Last Admin: 10/30/18 08:00 Dose: 1 applicatio Enoxaparin Sodium (Lovenox) 40 mg SC DAILY@0600 [facility] Last Admin: 10/30/18 05:26 Dose: 40 mg Haloperidol Lactate (Haldol) 1 - 2 mg IV Q4H PRN PRN PRN Reason: AGITATION Sodium Chloride () 1,000 mls @ 100 mls/hr IV .Q10H [facility] Last Admin: 10/30/18 09:54 Dose: 100 mls/hr Cefepime HCl 1 gm/ Sodium (Chloride) 50 mls @ 100 mls/hr IV Q8 [facility] Last Admin: 10/30/18 05:25 Dose: 100 mls/hr Insulin Human Lispro (Humalog Kwikpen (Bkc)) 0 unit SQ ACHS [facility]; Protocol Last Admin: 10/30/18 09:49 Dose: 2 units Levothyroxine Sodium (Synthroid) 100 mcg PO DAILY@0600 [facility] Last Admin: 10/30/18 05:26 Dose: 100 mcg Morphine Sulfate () 1 - 2 mg IV Q4H PRN PRN PRN Reason: Moderate Pain (pain scale 4-5) Ondansetron HCl (Zofran) 4 mg IV Q8H PRN PRN PRN Reason: Nausea Sodium Chloride () 5 - 15 ml IV UD PRN PRN Reason: SALINE FLUSH Medical Necessity - Tobacco Use Smoking Status: Former smoker - he used to smoke a pipe when he was younger Tobacco Use: Non-smoker, Pipe Assessment/Plan All Active Problems Sepsis (Acute) Pyelonephritis (Acute) Normochromic normocytic anemia (Acute) Patient is a 78-year-old with multiple comorbidities including dementia resident at an extended care facility with that with a chronic indwelling Santos catheter brought to the emergency department on account of decreased level of sensorium associated with fever. An assessment of severe sepsis secondary to UTI was made on admission to monitored bed for further management 1. Severe sepsis secondary to complicated UTI with Pseudomonas due to the presence of an indwelling Santos catheter. Patient was initially admitted to a monitored bed managed per protocol with broad-spectrum antibiotic therapy, IV fluid resuscitation after cultures have been sent. Patient is on appropriate antibiotic therapy with cefepime based on culture results of 2. Alzheimer's dementia with occasional behavioral disturbances patient is currently on Haldol as needed 3. Hypertension-blood pressure controlled, home medications continued with dose adjustment as needed 4. Hypothyroidism-patient is on levothyroxine home dose continued 5. Chronic nonhealing sacral decubitus ulcer 6. BPH with bladder outlet obstruction status post chronic indwelling Santos catheter 7. Generalized osteoarthritis 8. Diabetes mellitus type II; placed on 1800 ADA diet in addition to sliding scale coverage 9. DVT prophylaxis SC Lovenox CODE STATUS DNR [facility] Microbiology 10/28/18 12:20 Blood Culture (Wb) - Anticubital Left Blood Culture - Preliminary GNR non police officer crime prevention 10/28/18 12:30 Blood Culture (Wb) - Left Hand Blood Culture - Preliminary GNR non police officer crime prevention 10/28/18 16:49 Wound - Buttock Gram Stain - Final 10/28/18 16:49 Wound - Buttock Wound Culture - Preliminary Gram negative shania GNR lactose police officer crime prevention GPC Poss Enterococcus sp 10/28/18 14:00 Urine Catheter - Santos Urine Culture - Final Pseudomonas aeroginosa Active Medications Acetaminophen (Tylenol) 650 mg PO Q6H [facility] Stop: 10/30/18 14:31 Last Admin: 10/30/18 09:50 Dose: 650 mg Bisacodyl (Dulcolax) 10 mg RECTAL PRN PRN PRN Reason: Constipation Collagenase (Santyl) 1 applic TOPICAL DAILY [facility]; Protocol Last Admin: 10/30/18 08:00 Dose: 1 applicatio Enoxaparin Sodium (Lovenox) 40 mg SC DAILY@0600 [facility] Last Admin: 10/30/18 05:26 Dose: 40 mg Haloperidol Lactate (Haldol) 1 - 2 mg IV Q4H PRN PRN PRN Reason: AGITATION Sodium Chloride () 1,000 mls @ 100 mls/hr IV .Q10H [facility] Last Admin: 10/30/18 09:54 Dose: 100 mls/hr Cefepime HCl 1 gm/ Sodium (Chloride) 50 mls @ 100 mls/hr IV Q8 [facility] Last Admin: 10/30/18 05:25 Dose: 100 mls/hr Insulin Human Lispro (Humalog Kwikpen (Bkc)) 0 unit SQ ACHS [facility]; Protocol Last Admin: 10/30/18 09:49 Dose: 2 units Levothyroxine Sodium (Synthroid) 100 mcg PO DAILY@0600 [facility] Last Admin: 10/30/18 05:26 Dose: 100 mcg Morphine Sulfate () 1 - 2 mg IV Q4H PRN PRN PRN Reason: Moderate Pain (pain scale 4-5) Ondansetron HCl (Zofran) 4 mg IV Q8H PRN PRN PRN Reason: Nausea Sodium Chloride () 5 - 15 ml IV UD PRN PRN Reason: SALINE FLUSH Code Visit Inpatient E&M: 57411 Subs Hosp L2
--- NOTE | 2018-10-30 12:26 | PN_ITS ---
Patient Problems: Active and Suspected Problems Sepsis (Acute) Pyelonephritis (Acute) Urine retention (Suspected) Chronic renal failure (Suspected) Normochromic normocytic anemia (Acute) Subjective: Patient much more awake compared to the day prior. Objective: GENERAL: Not in any distress HEENT: Atraumatic; moist oral mucosa EYES; Anicteric, Normal Conjunctiva NECK; supple, normal thyroid, RESPIRATORY: Diminished to auscultation bilaterally, CARDIOVASCULAR: Regular S1 S2, GI: soft, non-tender, normoactive bowel sounds, : No Renal angle tenderness; EXTREMITIES: No edema, no clubbing, no cyanosis. MUSCULOSKELETAL: No Joint Tenderness; NEURO: Awake; no lateralizing signs. SKIN: No Rash PSYCH; flat affect Vitals/I&O's: Vital Signs Temp Pulse Resp BP Pulse Ox 98.3 F 72 18 113/61 95 10/30/18 09:45 10/30/18 09:45 10/30/18 09:45 10/30/18 09:45 10/30/18 09:45 Oxygen Flow Rate (L/min) 2 Oxygen Delivery Method Room Air Weight: 69.5 kg Body Mass Index (BMI) 24.7 Finger Stick Blood Glucose 141 Intake and Output for Last 24 Hours 10/28/18 10/29/18 10/30/18 23:59 23:59 23:59 Intake Total 1084.7 / 1084.7 1802 / 1802 1662.9 / 1662.9 Output Total 475 / 475 995 / 995 675 / 675 Balance 609.7 / 609.7 807 / 807 987.9 / 987.9 Microbiology Past 72 Hours 10/28/18 12:20 Blood Culture (Wb) - Anticubital Left Blood Culture - Preliminary GNR non maintenance repairman 10/28/18 12:30 Blood Culture (Wb) - Left Hand Blood Culture - Preliminary GNR non maintenance repairman 10/28/18 16:49 Wound - Buttock Gram Stain - Final 10/28/18 16:49 Wound - Buttock Wound Culture - Preliminary Gram negative shania GNR lactose maintenance repairman GPC Poss Enterococcus sp 10/28/18 14:00 Urine Catheter - Santos Urine Culture - Final Pseudomonas aeroginosa Laboratory Results 10/29/18 17:12: POC Glucose 169 H 10/29/18 20:49: POC Glucose 284 H 10/30/18 06:44: POC Glucose 259 H 10/30/18 11:38: POC Glucose 324 H Current Medications Acetaminophen (Tylenol) 650 mg PO Q6H [facility] Stop: 10/30/18 14:31 Last Admin: 10/30/18 09:50 Dose: 650 mg Bisacodyl (Dulcolax) 10 mg RECTAL PRN PRN PRN Reason: Constipation Collagenase (Santyl) 1 applic TOPICAL DAILY [facility]; Protocol Last Admin: 10/30/18 08:00 Dose: 1 applicatio Enoxaparin Sodium (Lovenox) 40 mg SC DAILY@0600 [facility] Last Admin: 10/30/18 05:26 Dose: 40 mg Haloperidol Lactate (Haldol) 1 - 2 mg IV Q4H PRN PRN PRN Reason: AGITATION Sodium Chloride () 1,000 mls @ 100 mls/hr IV .Q10H [facility] Last Admin: 10/30/18 09:54 Dose: 100 mls/hr Cefepime HCl 1 gm/ Sodium (Chloride) 50 mls @ 100 mls/hr IV Q8 [facility] Last Admin: 10/30/18 05:25 Dose: 100 mls/hr Insulin Human Lispro (Humalog Kwikpen (Bkc)) 0 unit SQ ACHS [facility]; Protocol Last Admin: 10/30/18 09:49 Dose: 2 units Levothyroxine Sodium (Synthroid) 100 mcg PO DAILY@0600 [facility] Last Admin: 10/30/18 05:26 Dose: 100 mcg Morphine Sulfate () 1 - 2 mg IV Q4H PRN PRN PRN Reason: Moderate Pain (pain scale 4-5) Ondansetron HCl (Zofran) 4 mg IV Q8H PRN PRN PRN Reason: Nausea Sodium Chloride () 5 - 15 ml IV UD PRN PRN Reason: SALINE FLUSH Medical Necessity - Tobacco Use Smoking Status: Former smoker - he used to smoke a pipe when he was younger Tobacco Use: Non-smoker, Pipe Assessment/Plan All Active Problems Sepsis (Acute) Pyelonephritis (Acute) Normochromic normocytic anemia (Acute) Patient is a 78-year-old with multiple comorbidities including dementia resident at an extended care facility with that with a chronic indwelling Santos catheter brought to the emergency department on account of decreased level of sensorium associated with fever. An assessment of severe sepsis secondary to UTI was made on admission to monitored bed for further management 1. Severe sepsis secondary to complicated UTI with Pseudomonas due to the presence of an indwelling Santos catheter. Patient was initially admitted to a monitored bed managed per protocol with broad-spectrum antibiotic therapy, IV fluid resuscitation after cultures have been sent. Patient is on appropriate antibiotic therapy with cefepime based on culture results of 2. Alzheimer's dementia with occasional behavioral disturbances patient is currently on Haldol as needed 3. Hypertension-blood pressure controlled, home medications continued with dose adjustment as needed 4. Hypothyroidism-patient is on levothyroxine home dose continued 5. Chronic nonhealing sacral decubitus ulcer 6. BPH with bladder outlet obstruction status post chronic indwelling Santos catheter 7. Generalized osteoarthritis 8. Diabetes mellitus type II; placed on 1800 ADA diet in addition to sliding scale coverage 9. DVT prophylaxis SC Lovenox CODE STATUS DNR [facility] Microbiology 10/28/18 12:20 Blood Culture (Wb) - Anticubital Left Blood Culture - Preliminary GNR non maintenance repairman 10/28/18 12:30 Blood Culture (Wb) - Left Hand Blood Culture - Preliminary GNR non maintenance repairman 10/28/18 16:49 Wound - Buttock Gram Stain - Final 10/28/18 16:49 Wound - Buttock Wound Culture - Preliminary Gram negative shania GNR lactose maintenance repairman GPC Poss Enterococcus sp 10/28/18 14:00 Urine Catheter - Santos Urine Culture - Final Pseudomonas aeroginosa Active Medications Acetaminophen (Tylenol) 650 mg PO Q6H [facility] Stop: 10/30/18 14:31 Last Admin: 10/30/18 09:50 Dose: 650 mg Bisacodyl (Dulcolax) 10 mg RECTAL PRN PRN PRN Reason: Constipation Collagenase (Santyl) 1 applic TOPICAL DAILY [facility]; Protocol Last Admin: 10/30/18 08:00 Dose: 1 applicatio Enoxaparin Sodium (Lovenox) 40 mg SC DAILY@0600 [facility] Last Admin: 10/30/18 05:26 Dose: 40 mg Haloperidol Lactate (Haldol) 1 - 2 mg IV Q4H PRN PRN PRN Reason: AGITATION Sodium Chloride () 1,000 mls @ 100 mls/hr IV .Q10H [facility] Last Admin: 10/30/18 09:54 Dose: 100 mls/hr Cefepime HCl 1 gm/ Sodium (Chloride) 50 mls @ 100 mls/hr IV Q8 [facility] Last Admin: 10/30/18 05:25 Dose: 100 mls/hr Insulin Human Lispro (Humalog Kwikpen (Bkc)) 0 unit SQ ACHS [facility]; Protocol Last Admin: 10/30/18 09:49 Dose: 2 units Levothyroxine Sodium (Synthroid) 100 mcg PO DAILY@0600 [facility] Last Admin: 10/30/18 05:26 Dose: 100 mcg Morphine Sulfate () 1 - 2 mg IV Q4H PRN PRN PRN Reason: Moderate Pain (pain scale 4-5) Ondansetron HCl (Zofran) 4 mg IV Q8H PRN PRN PRN Reason: Nausea Sodium Chloride () 5 - 15 ml IV UD PRN PRN Reason: SALINE FLUSH Code Visit Inpatient E&M: 46175 Subs Hosp L2
[2018-10-30 13:38] VITALS: BP 124/64; PULSE 74; RESP 18; TEMP 37.4; O2SAT 94
[2018-10-30 16:20] LABS: Bedside Glucose 308 mg/dL (70-110)
[2018-10-30 17:27] VITALS: BP 132/65; PULSE 69; RESP 17; TEMP 37; O2SAT 96
[2018-10-30 21:30] VITALS: BP 138/77; PULSE 75; RESP 18; TEMP 37.5; O2SAT 96
[2018-10-30 22:10] LABS: Bedside Glucose 266 mg/dL (70-110)
[2018-10-31 03:25] VITALS: BP 127/71; PULSE 63; RESP 18; TEMP 37.1; O2SAT 94
[2018-10-31] MEDS: Levothyroxine 100 MCG Tablet PO (05:01)
[2018-10-31] MEDS: Enoxaparin 40 MG/0.4 ML Syringe SC (05:01)
[2018-10-31 06:34] LABS: Hematocrit 26.3 % (40-54); Hemoglobin 8.4 g/dl (13.0-16.5); Mean Corp Hgb Conc 31.9 g/gl (32-36); Mean Corpuscular Hgb 28.8 pg (27.0-32.0); Mean Corpuscular Volume 90.1 fL (80-94); Mean Platelet Vol. 10.9 fl (6.2-12.0); Platelet Count 303 K/mm3 (150-450); RBC Distribution Width CV 15.1 % (11.6-14.6); RBC Distribution Width SD 48.4 fl (35.1-43.9); Red Blood Count 2.92 M/mm3 (4.6-6.2); White Blood Count 14.5 K/mm3 (4.4-11.0)
[2018-10-31 06:38] LABS: Scan Indicated on CBC? Y/N NO
[2018-10-31 06:56] LABS: Anion Gap 8 (5-15); BUN 18 mg/dL (7-18); BUN/Creat Ratio 20.2 RATIO (10-20); Chloride 114 mmol/L (98-107); Creatinine, Serum 0.89 mg/dL (0.70-1.30); EST Glomerular Filtration Rate 88 mL/min (>60); Est Glom Filt Rate - Afr Amer 106 mL/min (>60); Estimated Creatinine Clearance 61.73 ml/min; Glucose 233 mg/dL (74-106); Magnesium 2.1 mg/dL (1.6-2.6); Potassium 3.5 mmol/L (3.5-5.1); Sodium Level 145 mmol/L (136-145)
[2018-10-31 07:00] LABS: Bedside Glucose 206 mg/dL (70-110)
[2018-10-31] MEDS: 0.9% Normal Saline 1,000 ML 100 ML IV (08:00)
[2018-10-31] MEDS: Insulin Lispro 100 UNIT/ML INSULN.PEN SQ ×4 (08:50→21:38)
[2018-10-31] MEDS: Collagenase 30gm Tube 1 APPLIC TOPICAL (08:51)
--- NOTE | 2018-10-31 09:24 | PN_ITS ---
Patient Problems: Active and Suspected Problems Sepsis (Acute) Pyelonephritis (Acute) Urine retention (Suspected) Chronic renal failure (Suspected) Normochromic normocytic anemia (Acute) Subjective: Patient's culture results reviewed positive for ESBL in her wound cultures (Proteus, E. coli) and Enterococcus faecalis. Urine culture positive for Pseudomonas. Microbiology 10/28/18 16:49 Wound - Buttock Gram Stain - Final 10/28/18 16:49 Wound - Buttock Wound Culture - Preliminary Proteus mirabilis Escherichia coli Enterococcus faecalis 10/28/18 12:20 Blood Culture (Wb) - Anticubital Left Blood Culture - Preliminary GNR non flight operations engineer 10/28/18 12:30 Blood Culture (Wb) - Left Hand Blood Culture - Preliminary GNR non flight operations engineer 10/28/18 14:00 Urine Catheter - Santos Urine Culture - Final Pseudomonas aeroginosa Objective: GENERAL: Not in any distress, HEENT: Atraumatic; moist oral mucosa EYES; Anicteric, Normal Conjunctiva NECK; supple, normal thyroid, RESPIRATORY: Diminished to auscultation bilaterally, CARDIOVASCULAR: Regular S1 S2, GI: soft, non-tender, normoactive bowel sounds, : No Renal angle tenderness; EXTREMITIES: No edema, no clubbing, no cyanosis. MUSCULOSKELETAL: No Joint Tenderness; NEURO: Awake; no lateralizing signs. SKIN: No Rash PSYCH; flat affect Vitals/I&O's: Vital Signs Temp Pulse Resp BP Pulse Ox 98.8 F 63 18 127/71 H 94 10/31/18 03:25 10/31/18 03:25 10/31/18 03:25 10/31/18 03:25 10/31/18 03:25 Oxygen Flow Rate (L/min) 2 Oxygen Delivery Method Room Air Weight: 69.5 kg Body Mass Index (BMI) 24.7 Finger Stick Blood Glucose 141 Intake and Output for Last 24 Hours 10/29/18 10/30/18 10/31/18 23:59 23:59 23:59 Intake Total 1802 / 1802 3268.9 / 3268.9 60 / 60 Output Total 995 / 995 1325 / 1325 325 / 325 Balance 807 / 807 1943.9 / 1943.9 -265 / -265 Microbiology Past 72 Hours 10/28/18 12:20 Blood Culture (Wb) - Anticubital Left Blood Culture - Preliminary GNR non flight operations engineer 10/28/18 12:30 Blood Culture (Wb) - Left Hand Blood Culture - Preliminary GNR non flight operations engineer 10/28/18 16:49 Wound - Buttock Gram Stain - Final 10/28/18 16:49 Wound - Buttock Wound Culture - Preliminary Gram negative shania GNR lactose flight operations engineer [facility] Poss Enterococcus sp 10/28/18 14:00 Urine Catheter - Santos Urine Culture - Final Pseudomonas aeroginosa Laboratory Results 10/30/18 11:38: POC Glucose 324 H 10/30/18 16:17: POC Glucose 308 H 10/30/18 21:32: POC Glucose 266 H 10/31/18 06:06: WBC 14.5 H, RBC 2.92 L, Hgb 8.4 L, Hct 26.3 L, MCV 90.1, MCH 28.8, MCHC 31.9 L, RDW 15.1 H, RDW Differential 48.4 H, Plt Count 303, MPV 10.9 10/31/18 06:06: Sodium 145, Potassium 3.5, Chloride 114 H, Carbon Dioxide 23.0, Anion Gap 8, BUN 18, Creatinine 0.89, Estim Creat Clear Calc 61.73, Est GFR (MDRD) Af Amer 106, Est GFR (MDRD) Non-Af 88, BUN/Creatinine Ratio 20.2 H, Glucose 233 H, Calcium 8.0 L, Magnesium 2.1 10/31/18 06:50: POC Glucose 206 H Current Medications Bisacodyl (Dulcolax) 10 mg RECTAL PRN PRN PRN Reason: Constipation Collagenase (Santyl) 1 applic TOPICAL DAILY [facility]; Protocol Last Admin: 10/31/18 08:51 Dose: 1 applicatio Enoxaparin Sodium (Lovenox) 40 mg SC DAILY@0600 [facility] Last Admin: 10/31/18 05:01 Dose: 40 mg Haloperidol Lactate (Haldol) 1 - 2 mg IV Q4H PRN PRN PRN Reason: AGITATION Sodium Chloride () 1,000 mls @ 100 mls/hr IV .Q10H [facility] Last Admin: 10/31/18 08:00 Dose: 100 mls/hr Cefepime HCl 1 gm/ Sodium (Chloride) 50 mls @ 100 mls/hr IV Q8 [facility] Last Admin: 10/31/18 05:01 Dose: 100 mls/hr Insulin Human Lispro (Humalog Kwikpen (Bkc)) 0 unit SQ ACHS [facility]; Protocol Last Admin: 10/31/18 08:50 Dose: 1 units Levothyroxine Sodium (Synthroid) 100 mcg PO DAILY@0600 [facility] Last Admin: 10/31/18 05:01 Dose: 100 mcg Morphine Sulfate () 1 - 2 mg IV Q4H PRN PRN PRN Reason: Moderate Pain (pain scale 4-5) Ondansetron HCl (Zofran) 4 mg IV Q8H PRN PRN PRN Reason: Nausea Sodium Chloride () 5 - 15 ml IV UD PRN PRN Reason: SALINE FLUSH Medical Necessity - Tobacco Use Smoking Status: Former smoker - he used to smoke a pipe when he was younger Tobacco Use: Non-smoker, Pipe Assessment/Plan All Active Problems Sepsis (Acute) Pyelonephritis (Acute) Normochromic normocytic anemia (Acute) Patient is a 78-year-old with multiple comorbidities including dementia resident at an extended care facility with that with a chronic indwelling Santos catheter brought to the emergency department on account of decreased level of sensorium associated with fever. An assessment of severe sepsis secondary to UTI was made on admission to monitored bed for further management 1. Severe sepsis secondary to complicated UTI with Pseudomonas due to the presence of an indwelling Santos catheter. Patient was initially admitted to a monitored bed managed per protocol with broad-spectrum antibiotic therapy, IV fluid resuscitation after cultures have been sent. Patient is on appropriate antibiotic therapy with cefepime based on culture results . Vancomycin added for enterococcal coverage patient is allergic to penicillins (reaction unknown) otherwise Zosyn would have been an appropriate choice covering all bacteria growing from patient's urine and wound cultures 2. Polymicrobial infected decubitus (present on admission) from chronic nonhealing sacral decubitus patient is on broad-spectrum antibiotic therapy as discussed above 3. Alzheimer's dementia with occasional behavioral disturbances patient is currently on Haldol as needed 4. Hypertension-blood pressure controlled, home medications continued with dose adjustment as needed 5. Hypothyroidism-patient is on levothyroxine home dose continued 6. BPH with bladder outlet obstruction status post chronic indwelling Santos catheter 7. Generalized osteoarthritis 8. Diabetes mellitus type II; placed on 1800 ADA diet in addition to sliding scale coverage 9. DVT prophylaxis SC Lovenox CODE STATUS DNR [facility] Microbiology 10/28/18 16:49 Gram Stain - Final Wound - Buttock Wound Culture - Preliminary Proteus mirabilis Escherichia coli Enterococcus faecalis 10/28/18 12:20 Blood Culture - Preliminary Blood Culture (Wb) - Anticubital Left GNR non flight operations engineer 10/28/18 12:30 Blood Culture - Preliminary Blood Culture (Wb) - Left Hand GNR non flight operations engineer 10/28/18 14:00 Urine Culture - Final Urine Catheter - Santos Pseudomonas aeroginosa Code Visit Inpatient E&M: 22723 Subs Hosp L2
[2018-10-31 09:25] VITALS: BP 136/75; PULSE 68; RESP 16; TEMP 36.9; O2SAT 96
[2018-10-31 11:40] LABS: Bedside Glucose 297 mg/dL (70-110)
[2018-10-31] MEDS: Vancomycin IV 1,000 MG/200 ML BAG 200 MG IV (12:31)
[2018-10-31 15:30] VITALS: BP 108/69; PULSE 60; RESP 14; TEMP 36.8; O2SAT 96
--- NOTE | 2018-10-31 15:39 | PCM.RX.CS ---
Consult Pharmacy has been consulted to manage selected antiobiotic: Vancomycin Type of Consult: New start Suspected Infection: Sepsis Prior Doses of Antibiotics Received/Current Regimen: Vancomycin 1000mg IV x1 initial dose given 10/31/18 at 1231 Labs: Sodium 145 mmol/L (136-145) 10/31/18 06:06 Potassium 3.5 mmol/L (3.5-5.1) 10/31/18 06:06 Chloride 114 mmol/L (98-107) H 10/31/18 06:06 Carbon Dioxide 23.0 mmol/L (21.0-32.0) 10/31/18 06:06 Anion Gap 8 (5-15) 10/31/18 06:06 BUN 18 mg/dL (7-18) 10/31/18 06:06 Creatinine 0.89 mg/dL (0.70-1.30) 10/31/18 06:06 Est GFR (MDRD) Af Amer 106 mL/min (>60) 10/31/18 06:06 Est GFR (MDRD) Non-Af 88 mL/min (>60) 10/31/18 06:06 BUN/Creatinine Ratio 20.2 RATIO (10-20) H 10/31/18 06:06 Glucose 233 mg/dL (74-106) H 10/31/18 06:06 Microbiology: Microbiology 10/28/18 12:30 Blood Culture (Wb) - Left Hand Blood Culture - Final GNR non quality assurance coach 10/28/18 12:20 Blood Culture (Wb) - Anticubital Left Blood Culture - Final Proteus mirabilis 10/28/18 16:49 Wound - Buttock Gram Stain - Final 10/28/18 16:49 Wound - Buttock Wound Culture - Preliminary Proteus mirabilis Escherichia coli Enterococcus faecalis 10/28/18 14:00 Urine Catheter - Santos Urine Culture - Final Pseudomonas aeroginosa Weight used for dosin.5 kg Estimated Creatinine Clearance: 62ml/min Goal Trough: 10-15 mcg/mL Pharmacy Plan for Drug Dosing: Recommend Vancomycin 500mg IV q12h starting 10/31/18 at 2300. Trough will be drawn before the 4th total dose on 11/01/18 at 2230. Goal trough is 10-15 Pharmacy Service will continue to monitor and adjust dosing as required. Follow-Up Labs: Trough Vancomycin - trough Labs to be done on [date and time ordered]: trough level 11/01/18 at 2230
[2018-10-31 16:41] LABS: Bedside Glucose 243 mg/dL (70-110)
[2018-10-31 18:00] VITALS: BP 114/62; PULSE 63; RESP 16; TEMP 36.8; O2SAT 98
[2018-10-31 21:20] VITALS: BP 132/62; PULSE 63; RESP 18; TEMP 37.6; O2SAT 96
[2018-10-31 21:45] LABS: Bedside Glucose 222 mg/dL (70-110)
[2018-11-01 03:20] VITALS: BP 139/67; PULSE 71; RESP 18; TEMP 37.7; O2SAT 95
[2018-11-01] MEDS: 0.9% Normal Saline 1,000 ML 100 ML IV ×2 (05:08→09:33)
[2018-11-01] MEDS: Levothyroxine 100 MCG Tablet PO (06:05)
[2018-11-01] MEDS: Enoxaparin 40 MG/0.4 ML Syringe SC (06:05)
[2018-11-01 06:30] LABS: Hematocrit 26.8 % (40-54); Hemoglobin 8.5 g/dl (13.0-16.5); Mean Corp Hgb Conc 31.7 g/gl (32-36); Mean Corpuscular Hgb 28.5 pg (27.0-32.0); Mean Corpuscular Volume 89.9 fL (80-94); Platelet Count 342 K/mm3 (150-450); RBC Distribution Width CV 14.9 % (11.6-14.6); RBC Distribution Width SD 47.6 fl (35.1-43.9); Red Blood Count 2.98 M/mm3 (4.6-6.2); White Blood Count 16.3 K/mm3 (4.4-11.0)
[2018-11-01 06:36] LABS: Anion Gap 8 (5-15); BUN 14 mg/dL (7-18); BUN/Creat Ratio 16.1 RATIO (10-20); Calcium,Total 7.6 mg/dL (8.5-10.1); Chloride 111 mmol/L (98-107); Creatinine, Serum 0.87 mg/dL (0.70-1.30); EST Glomerular Filtration Rate 90 mL/min (>60); Est Glom Filt Rate - Afr Amer 109 mL/min (>60); Estimated Creatinine Clearance 63.15 ml/min; Glucose 224 mg/dL (74-106); Potassium 3.3 mmol/L (3.5-5.1); Sodium Level 141 mmol/L (136-145)
[2018-11-01 06:43] LABS: Scan Indicated on CBC? Y/N NO
[2018-11-01] MEDS: Acetaminophen 325 MG Tablet 650 MG PO (07:05)
[2018-11-01 07:07] VITALS: TEMP 37.8
[2018-11-01 07:56] LABS: Bedside Glucose 225 mg/dL (70-110)
[2018-11-01 09:20] VITALS: BP 132/71; PULSE 76; RESP 18; TEMP 37; O2SAT 95
[2018-11-01] MEDS: Insulin Lispro 100 UNIT/ML INSULN.PEN SQ ×2 (09:33→12:35)
[2018-11-01] MEDS: Collagenase 30gm Tube 1 APPLIC TOPICAL (09:34)
--- NOTE | 2018-11-01 09:55 | CASEMGMT ---
Social work note: Spoke with Dr. Edward who states that patient is ready for D/C today. Patient to return to [facility] with hospice services through [facility]. TC to Vidhya at [facility]. Vidhya aware that patient is ready for D/C today. Will follow to assist with D/C planning. TC to [facility] to inquire about which transport company should be used for transport. Spoke with Ting who will look into this and call this SW back. Will follow for D/C planning. PLAN: Patient to return to [facility] with [facility]. FE Villegas
--- NOTE | 2018-11-01 10:43 | PCM.TXEXTCAR ---
- Diet 10/29/18 16:41 Diet: Regular Diet Food consistency:: Mechanical Soft/Ground Liquid Consistency:: [place] Thick Dietary Modifications:: Mechanical Soft Diet [place] Thick Liquids Is pt able to select menu?: No Diet Comments: Supervision by staff / family; seated at 90 degrees; meds whole w/ purees - Wound(s) COCCYX Wound Type: Pressure Injury Dressing Change: santyl - Allergies/Procedures Done in Hospital Allergies/Adverse Reactions: Allergies ciprofloxacin [From Cipro] Allergy (Verified 10/28/18 12:10) Unknown Penicillins [PCN] Allergy (Verified 10/28/18 12:10) Unknown - Type of Care/Length of Stay Estimated LOS: Convalescent Care Less Than 30 days Type of Care Needed: Skilled Rehab Potential: Poor Prognosis: Poor - Additional Orders/Day of Discharge Additional Orders: [facility] facility with hospice Day of Discharge: 11/01/18 - Dietary and Speech Recommendations Dietitian Recommendations/Changes: Rec diet as tolerated to liberal regular diet, consistency per speech. Rec [place] 1 pkg BID for wound healing. Rec add ONS w/ medpass when diet advances. Rec DELICATESSEN DEPARTMENT MANAGER consult when appropriate. - Follow Up Care Primary Care Physician: Edy Che MD [Primary Care Provider] -
--- NOTE | 2018-11-01 10:44 | PCM.DC.SUM ---
Discharge Date and Diagnosis - Problem List Patient Problems: Active and Suspected Problems Sepsis (Acute) Pyelonephritis (Acute) Urine retention (Suspected) Chronic renal failure (Suspected) Normochromic normocytic anemia (Acute) Date of Admission: 10/28/18 Date of Discharge: 11/01/18 - Primary Discharge Diagnosis Active and Suspected Problems Sepsis (Acute) Pyelonephritis (Acute) Urine retention (Suspected) Chronic renal failure (Suspected) Normochromic normocytic anemia (Acute) - Secondary Discharge Diagnosis Chronic Problems Osteoarthritis (Chronic) Dementia with behavioral disturbance (Chronic) HTN (hypertension) (Chronic) Type 2 diabetes mellitus (Chronic) Dysphagia (Chronic) Sacral decubitus ulcer (Chronic) Hospital Course and Treatment Imaging Results: None Consultations 10/28/18 15:51 Consult: Onc/Wound/geodetic technician Routine Comment: Operations: None Procedures: None Summary of Care Provided: Per HPI: The patient is a 78 year old M with a PMH of dementia with behavioral disturbances, diabetes mellitus type 2, hypertension, hypothyroidism, osteoarthritis, chronic non-healing sacral decubitus ulcer and 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 on 10/28/2018 with recent change in mental status and temp to 104 ?F at the [facility]. He is not able to converse with me at the time of my exam and hx was obtained from his . He is currently receiving palliative care at the [facility] and his has been considering hospice but, she has not been able to make that decision yet and she wants him treated for infection but he will be DNRCCA. Vital signs of presentation to the emergency room were temp 98.4, pulse rate 118, blood pressure 118/69, respiratory rate 21 and he was 94% saturated on room air. White blood cell count is elevated at 11.5 with left shift. His hemoglobin is 10.7 with normochromic normocytic indices. Platelets are within normal limits. Electrolytes are within normal limits. BUN is 29 with a creatinine of 1.21 and an estimated creatinine clearance of 49.58. We have no baseline labs on this gentleman. Random blood sugar was 155 and hemoglobin A1c was elevated at 8.9. The initial lactic acid was 2.2 but the second check following hydration was 1.0. Transaminases are mildly elevated with an AST of 67 and an ALT of 72. Alk phos and bili are within normal limits. The troponin was less than 0.015. The urine showed 50-100 WBCs per high-power field with 3+ bacteria. Blood cultures x2 and a urine culture were sent from the emergency department. The chest x-ray showed no infiltrates, pulmonary vascular congestion or pleural effusions. He is being admitted to the hospital with complicated UTI/pyelonephritis and severe sepsis with altered mental status. Hospital Course: 1. Severe sepsis secondary to complicated UTI with Pseudomonas to the presence of an indwelling Zuñiga catheter/polymicrobial decubitus ulcer/Alzheimer's [id number] male presents from [facility] with altered mental status as well as a fever to 104 ?F. He was found to have a pseudomonal infection in his urine he has a chronic Zuñiga which is unlikely to be the cause of his symptoms as well as a polymicrobial decubitus ulcer on his buttock that is growing Proteus, E. coli, enterococcus, and VRE; with Proteus growing in his blood. Multiple discussions were had between nursing staff, social work, physicians, and the family and it was felt that he would be appropriate to go back to the facility on hospice. He was discharged on no antibiotics and he was continued on all of his home medications so that way his family and hospice could decide on what to continue and want to discontinue. Patient Problems: Active and Suspected Problems Sepsis (Acute) Pyelonephritis (Acute) Urine retention (Suspected) Chronic renal failure (Suspected) Normochromic normocytic anemia (Acute) - Physical Exam General: No apparent distress, Confused, Disoriented HEENT: Atraumatic, EOMI, Normocephalic Oral: Moist Mucosa Neck: Supple, No JVD, Trachea Midline Lungs: Clear to auscultation, Normal air movement, No rhonchi, No wheeze, No rales, Diminished Cardiovascular: Regular rate, Regular Rhythm, Normal S1, Normal S2 Abdomen: Soft, Non Tender, Non-Distended, No Hepato-splenomegaly Extremities: No edema, Capillary Refill Less than 3 Seconds Skin: - - Decubitus buttock ulcer dressed Psych/Mental Status: Normal Affect, Appropriate Vital Signs Temp Pulse Resp BP Pulse Ox 100.0 F H 71 18 139/67 H 95 11/01/18 07:07 11/01/18 03:20 11/01/18 03:20 11/01/18 03:20 11/01/18 03:20 Oxygen Flow Rate (L/min) 2 Oxygen Delivery Method Room Air Weight: 153 lb 3.54 oz Body Mass Index (BMI) 24.7 Finger Stick Blood Glucose 141 Intake and Output for Last 24 Hours 10/30/18 10/31/18 11/01/18 23:59 23:59 23:59 Intake Total 3268.9 / 3268.9 2847 / 2847 509 / 509 Output Total 1325 / 1325 1500 / 1500 275 / 275 Balance 1943.9 / 1943.9 1347 / 1347 234 / 234 Microbiology Past 72 Hours 10/28/18 16:49 Gram Stain - Final Wound - Buttock Wound Culture - Final Proteus mirabilis Escherichia coli Enterococcus faecalis Vancomycin Resist. E. faecium 10/28/18 12:30 Blood Culture - Final Blood Culture (Wb) - Left Hand GNR non union representative 10/28/18 12:20 Blood Culture - Final Blood Culture (Wb) - Anticubital Left Proteus mirabilis 10/28/18 14:00 Urine Culture - Final Urine Catheter - Zuñiga Pseudomonas aeroginosa Laboratory Tests Past 24 Hrs 11/01/18 11/01/18 05:58 05:58 WBC 16.3 H RBC 2.98 L Hgb 8.5 L Hct 26.8 L MCV 89.9 MCH 28.5 MCHC 31.7 L RDW 14.9 H RDW Differential 47.6 H Plt Count 342 MPV 11.0 Sodium 141 Potassium 3.3 L Chloride 111 H Carbon Dioxide 22.0 Anion Gap 8 BUN 14 Creatinine 0.87 Estim Creat Clear Calc 63.15 Est GFR (MDRD) Af Amer 109 Est GFR (MDRD) Non-Af 90 BUN/Creatinine Ratio 16.1 Glucose 224 H Calcium 7.6 L POC Glucose 11/01/18 10/31/18 10/31/18 07:02 21:36 16:33 POC Glucose 225 H 222 H 243 H 10/31/18 11:32 POC Glucose 297 H Home Medications: Medications to take at Discharge Acetaminophen 650 mg PO 4X/DAY PRN 10/28/18 Acetaminophen 650 mg RC Q4H PRN 10/28/18 Amlodipine [Norvasc] 5 mg PO DAILY 10/28/18 Ascorbic Acid [Vitamin C] 500 mg PO DAILY@0800 10/28/18 Aspirin E.C. [Ecotrin] 81 mg PO DAILY@0800 10/28/18 Atorvastatin Calcium [Lipitor] 10 mg PO QHS 10/28/18 Bisacodyl 10 mg RC PRN PRN 10/28/18 Collagenase [Santyl] 1 applic TOPICAL DAILY 10/28/18 Cyanocobalamin [Vitamin B12] 500 mcg PO DAILY@0800 10/28/18 Divalproex Sprinkles [Depakote Sprinkles] 500 mg NG QHS 10/28/18 Docusate Sodium 100 mg PO BID 10/28/18 Donepezil HCl [Aricept] 10 mg PO QHS 10/28/18 Doxycycline Monohydrate 100 mg PO Q12H 10/28/18 Guaifenesin [Robitussin] 10 ml PO Q4H PRN PRN 10/28/18 Insulin Glargine,Hum.rec.anlog [Lantus] 30 unit SC QHS 10/28/18 Insulin Lispro [Humalog] 10 unit SC BREAKFAST 10/28/18 Levothyroxine [Synthroid] 100 mcg PO DAILY 10/28/18 Mag Hydrox/Al Hydrox/Simeth [Mylanta II] 30 ml PO Q4H PRN PRN 10/28/18 Magnesium Hydroxide [Milk Of Magnesia] 30 ml PO DAILY PRN PRN 10/28/18 Multivit,Stress Formula/Zinc [Stress Formula with Zinc Tab] 1 each PO BID 10/28/18 Multivit,Tx with Iron,Minerals [Thera-M] 1 tab PO DAILY 10/28/18 Polyethylene Glycol 3350 [Miralax] 17 gm PO DAILY 10/28/18 Prostat Awc 30 ml PO BID 10/28/18 Risperidone [Risperdal] 1 mg PO DAILY 10/28/18 Sennosides [Senna Lax] 8.6 mg PO BID 10/28/18 traMADol [Ultram] 50 mg PO DAILY PRN 10/28/18 traZODone [Desyrel] 50 mg PO QHS 10/28/18 Primary Care Physician: Edy Che MD [Primary Care Provider] - Disposition: Longterm facility - Hospice Minutes spent on discharge:: 35 Patient Condition:: Fair Medical Necessity - Tobacco Use Smoking Status: Former smoker - he used to smoke a pipe when he was younger Tobacco Use: Non-smoker, Pipe Meaningful Use Info Meaningful Use Diagnoses (Choose all that apply): None applicable Code Visit Inpatient E&M: 98848 Disch Hosp
--- NOTE | 2018-11-01 10:50 | DS.PCM_ITS ---
Discharge Date and Diagnosis - Problem List Patient Problems: Active and Suspected Problems Sepsis (Acute) Pyelonephritis (Acute) Urine retention (Suspected) Chronic renal failure (Suspected) Normochromic normocytic anemia (Acute) Date of Admission: 10/28/18 Date of Discharge: 11/01/18 - Primary Discharge Diagnosis Active and Suspected Problems Sepsis (Acute) Pyelonephritis (Acute) Urine retention (Suspected) Chronic renal failure (Suspected) Normochromic normocytic anemia (Acute) - Secondary Discharge Diagnosis Chronic Problems Osteoarthritis (Chronic) Dementia with behavioral disturbance (Chronic) HTN (hypertension) (Chronic) Type 2 diabetes mellitus (Chronic) Dysphagia (Chronic) Sacral decubitus ulcer (Chronic) Hospital Course and Treatment Imaging Results: None Consultations 10/28/18 15:51 Consult: Onc/Wound/shipping and receiving Routine Comment: Operations: None Procedures: None Summary of Care Provided: Per HPI: The patient is a 78 year old M with a PMH of dementia with behavioral disturbances, diabetes mellitus type 2, hypertension, hypothyroidism, osteoarthritis, chronic non-healing sacral decubitus ulcer and 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 He is not able to converse with me at the time of my exam and hx was obtained from his . He is currently receiving palliative care at the [facility] and his has been considering hospice but, she has not been able to make that decision yet and she wants him treated for infection but he will be DNRCCA. Vital signs of presentation to the emergency room were temp 98.4, pulse rate 118, blood pressure 118/69, respiratory rate 21 and he was 94% saturated on room air. White blood cell count is elevated at 11.5 with left shift. His hemoglobin is 10.7 with normochromic normocytic indices. Platelets are within normal limits. Electrolytes are within normal limits. BUN is 29 with a creatinine of 1.21 and an estimated creatinine clearance of 49.58. We have no baseline labs on this gentleman. Random blood sugar was 155 and hemoglobin A1c was elevated at 8.9. The initial lactic acid was 2.2 but the second check following hydration was 1.0. Transaminases are mildly elevated with an AST of 67 and an ALT of 72. Alk phos and bili are within normal limits. The troponin was less than 0.015. The urine showed 50-100 WBCs per high-power field with 3+ bacteria. Blood cultures x2 and a urine culture were sent from the emergency department. The chest x-ray showed no infiltrates, pulmonary vascular congestion or pleural effusions. He is being admitted to the hospital with complicated UTI/pyelonephritis and severe sepsis with altered mental status. Hospital Course: 1. Severe sepsis secondary to complicated UTI with Pseudomonas to the presence of an indwelling Zuñiga catheter/polymicrobial decubitus ulcer/Alzheimer's [id number] male presents from retirement with altered mental status as well as a fever to 104 ?F. He was found to have a pseudomonal infection in his urine he has a chronic Zuñiga which is unlikely to be the cause of his symptoms as well as a polymicrobial decubitus ulcer on his buttock that is growing Proteus, E. coli, enterococcus, and VRE; with Proteus growing in his blood. Multiple discussions were had between nursing staff, social work, physicians, and the family and it was felt that he would be appropriate to go back to the facility on hospice. He was discharged on no antibiotics and he was continued on all of his home medications so that way his family and hospice could decide on what to continue and want to discontinue. Patient Problems: Active and Suspected Problems Sepsis (Acute) Pyelonephritis (Acute) Urine retention (Suspected) Chronic renal failure (Suspected) Normochromic normocytic anemia (Acute) - Physical Exam General: No apparent distress, Confused, Disoriented HEENT: Atraumatic, EOMI, Normocephalic Oral: Moist Mucosa Neck: Supple, No JVD, Trachea Midline Lungs: Clear to auscultation, Normal air movement, No rhonchi, No wheeze, No rales, Diminished Cardiovascular: Regular rate, Regular Rhythm, Normal S1, Normal S2 Abdomen: Soft, Non Tender, Non-Distended, No Hepato-splenomegaly Extremities: No edema, Capillary Refill Less than 3 Seconds Skin: - - Decubitus buttock ulcer dressed Psych/Mental Status: Normal Affect, Appropriate Vital Signs Temp Pulse Resp BP Pulse Ox 100.0 F H 71 18 139/67 H 95 11/01/18 07:07 11/01/18 03:20 11/01/18 03:20 11/01/18 03:20 11/01/18 03:20 Oxygen Flow Rate (L/min) 2 Oxygen Delivery Method Room Air Weight: 153 lb 3.54 oz Body Mass Index (BMI) 24.7 Finger Stick Blood Glucose 141 Intake and Output for Last 24 Hours 10/30/18 10/31/18 11/01/18 23:59 23:59 23:59 Intake Total 3268.9 / 3268.9 2847 / 2847 509 / 509 Output Total 1325 / 1325 1500 / 1500 275 / 275 Balance 1943.9 / 1943.9 1347 / 1347 234 / 234 Microbiology Past 72 Hours 10/28/18 16:49 Gram Stain - Final Wound - Buttock Wound Culture - Final Proteus mirabilis Escherichia coli Enterococcus faecalis Vancomycin Resist. E. faecium 10/28/18 12:30 Blood Culture - Final Blood Culture (Wb) - Left Hand GNR non special effects artist 10/28/18 12:20 Blood Culture - Final Blood Culture (Wb) - Anticubital Left Proteus mirabilis 10/28/18 14:00 Urine Culture - Final Urine Catheter - Zuñiga Pseudomonas aeroginosa Laboratory Tests Past 24 Hrs 11/01/18 11/01/18 05:58 05:58 WBC 16.3 H RBC 2.98 L Hgb 8.5 L Hct 26.8 L MCV 89.9 MCH 28.5 MCHC 31.7 L RDW 14.9 H RDW Differential 47.6 H Plt Count 342 MPV 11.0 Sodium 141 Potassium 3.3 L Chloride 111 H Carbon Dioxide 22.0 Anion Gap 8 BUN 14 Creatinine 0.87 Estim Creat Clear Calc 63.15 Est GFR (MDRD) Af Amer 109 Est GFR (MDRD) Non-Af 90 BUN/Creatinine Ratio 16.1 Glucose 224 H Calcium 7.6 L POC Glucose 11/01/18 10/31/18 10/31/18 07:02 21:36 16:33 POC Glucose 225 H 222 H 243 H 10/31/18 11:32 POC Glucose 297 H Home Medications: Medications to take at Discharge Acetaminophen 650 mg PO 4X/DAY PRN 10/28/18 Acetaminophen 650 mg RC Q4H PRN 10/28/18 Amlodipine [Norvasc] 5 mg PO DAILY 10/28/18 Ascorbic Acid [Vitamin C] 500 mg PO DAILY@0800 10/28/18 Aspirin E.C. [Ecotrin] 81 mg PO DAILY@0800 10/28/18 Atorvastatin Calcium [Lipitor] 10 mg PO QHS 10/28/18 Bisacodyl 10 mg RC PRN PRN 10/28/18 Collagenase [Santyl] 1 applic TOPICAL DAILY 10/28/18 Cyanocobalamin [Vitamin B12] 500 mcg PO DAILY@0800 10/28/18 Divalproex Sprinkles [Depakote Sprinkles] 500 mg NG QHS 10/28/18 Docusate Sodium 100 mg PO BID 10/28/18 Donepezil HCl [Aricept] 10 mg PO QHS 10/28/18 Doxycycline Monohydrate 100 mg PO Q12H 10/28/18 Guaifenesin [Robitussin] 10 ml PO Q4H PRN PRN 10/28/18 Insulin Glargine,Hum.rec.anlog [Lantus] 30 unit SC QHS 10/28/18 Insulin Lispro [Humalog] 10 unit SC BREAKFAST 10/28/18 Levothyroxine [Synthroid] 100 mcg PO DAILY 10/28/18 Mag Hydrox/Al Hydrox/Simeth [Mylanta II] 30 ml PO Q4H PRN PRN 10/28/18 Magnesium Hydroxide [Milk Of Magnesia] 30 ml PO DAILY PRN PRN 10/28/18 Multivit,Stress Formula/Zinc [Stress Formula with Zinc Tab] 1 each PO BID 10/28/18 Multivit,Tx with Iron,Minerals [Thera-M] 1 tab PO DAILY 10/28/18 Polyethylene Glycol 3350 [Miralax] 17 gm PO DAILY 10/28/18 Prostat Awc 30 ml PO BID 10/28/18 Risperidone [Risperdal] 1 mg PO DAILY 10/28/18 Sennosides [Senna Lax] 8.6 mg PO BID 10/28/18 traMADol [Ultram] 50 mg PO DAILY PRN 10/28/18 traZODone [Desyrel] 50 mg PO QHS 10/28/18 Primary Care Physician: Edy Che MD [Primary Care Provider] - [facility] Minutes spent on discharge:: 35 Patient Condition:: Fair Medical Necessity - Tobacco Use Smoking Status: Former smoker - he used to smoke a pipe when he was younger Tobacco Use: Non-smoker, Pipe Meaningful Use Info Meaningful Use Diagnoses (Choose all that apply): None applicable Code Visit Inpatient E&M: 13572 Disch Hosp
--- NOTE | 2018-11-01 10:50 | CASEMGMT ---
Social Work: TC tania Castro from [facility]. Gloria states that KARLEY Leyva from hospice will be coming to [facility] within the hour to assist with D/C plan. Gloria states that [facility] will set up transportation. Will follow to assist as needed. TC to Vidhya at [facility]. Vidhya aware that [place] will be setting up transportation. D/C transfer and med list faxed to Vidhya at [facility]. PLAN: Patient to be discharged to [facility] today with [facility]. FE Watson
[2018-11-01 11:50] LABS: Bedside Glucose 398 mg/dL (70-110)
--- NOTE | 2018-11-01 12:17 | NURSING ---
wound photo: sacrum
--- NOTE | 2018-11-01 13:08 | CASEMGMT ---
Social Work: KARLEY Leyva from [facility] here to see patient. [facility]umn states transportation has been set up for 4:30 through [facility]. D/C orders and med list given to [facility]. TC to Vidhya at [facility]. Vidhya aware that patient will be picked up at 4:30pm by [facility]. PLAN: Patient to be discharged to [facility] today with hospice care through [facility]. FE Villegas
--- NOTE | 2018-11-01 16:22 | CHAPLAIN ---
Type of Pastoral Visit _x__ Initial Visit ___ Follow-up Visit ___ On-call Visit ___ General Patient Visit ___ Spiritual Assessment ___ Family Conference ___ Bereavement ___ Rapid Response ___ Code Blue ___ Other (describe below) Pastoral Care Referral From _x__ Patient ___ Family ___ Nurse ___ Physician ___ Railroad Design Consultant ___ Billing Control Clerk _x__ Other (describe below) Sacrament/Intervention ___ Active listening ___ Anointing ___ Amish ___ Bereavement ___ Communion ___ Jahaira exploration ___ ___ Life review _x__ Prayer ___ Reconciliation ___ Sacrament of Sick _x__ Supportive presence ___ Wedding ___ Other (describe below) Pastoral Comments patient was alone in the room; ATTORNEY AT [employer] had just left and said pt was awake but may not talk; pt looked at me as I introduced self and my role; pt did not answer any questions or attempt to answer; offered to be with him and/or say a prayer; no response; gave calm talk and a brief prayer before leaving
== END 2018-11-01 17:55 | disposition hospice, inpatient (51) | DRG 698 ==
LOC: ED 15:06 → PCU 15:21
PROVIDERS: Internal Medicine; Admitting Provider Internal Medicine; Emergency Provider Emergency Medicine; Family Provider Family Medicine; PCP Family Medicine; Visit Provider Family Medicine
DX: T83.511A Infection and inflammatory reaction due to indwelling urethral catheter, initial encounter (principal); A41.9 Sepsis, unspecified organism; R65.20 Severe sepsis without septic shock; N13.8 Other obstructive and reflux uropathy; F02.81 Dementia in other diseases classified elsewhere, unspecified severity, with behavioral disturbance; E87.2 Acidosis; Z66 Do not resuscitate; E03.9 Hypothyroidism, unspecified; N40.1 Benign prostatic hyperplasia with lower urinary tract symptoms; M15.9 Polyosteoarthritis, unspecified; G30.9 Alzheimer's disease, unspecified; I12.9 Hypertensive chronic kidney disease with stage 1 through stage 4 chronic kidney disease, or unspecified chronic kidney disease; E11.22 Type 2 diabetes mellitus with diabetic chronic kidney disease; N18.9 Chronic kidney disease, unspecified; D64.9 Anemia, unspecified; L89.150 Pressure ulcer of sacral region, unstageable; N15.9 Renal tubulo-interstitial disease, unspecified; B96.5 Pseudomonas (aeruginosa) (mallei) (pseudomallei) as the cause of diseases classified elsewhere; B96.4 Proteus (mirabilis) (morganii) as the cause of diseases classified elsewhere; B96.20 Unspecified Escherichia coli [E. coli] as the cause of diseases classified elsewhere; B95.2 Enterococcus as the cause of diseases classified elsewhere; Z16.21 Resistance to vancomycin; Z51.5 Encounter for palliative care; R13.10 Dysphagia, unspecified; Z87.891 Personal history of nicotine dependence
CPT/HCPCS: 36415; 71045; 80048; 80053; 81001; 82962; 83036; 83605; 83735; 84439; 84443; 84484; 85025; 85027; 87040; 87070; 87077; 87086; 87088; 87184; 87186; 87205; 92526; 93005; 97802; 99285; J7030; J7050; A4216